=== PATIENT | female | born 1950 | race Caucasian/White ===

== ENCOUNTER 2020-05-16 08:33 | Day surgery (SDC) | payer MEDICARE, OTHER ==
[~2020-05-16] VITALS: Ht 162.6 cm; Wt 73.6 kg
[~2020-05-16 08:33] MED LIST: CRUTCH USE; HYDACE5 PO
--- NOTE | 2020-05-16 09:17 | NUR ---
Ambulatory in Day Surgery History, Chart, Medications and Allergies reviewed before start of procedure. Lungs clear T/O to Auscultation. Patient confirms NPO status and agrees with scheduled surgery. Patient States Post-Procedure ride home has been arranged.
--- NOTE | 2020-05-16 11:37 | NUR ---
05/16/20 1137 Lydia Mcpherson History, Chart, Medications and Allergies reviewed before start of procedure. Patient confirms NPO status and agrees with scheduled surgery. PATIENT DETERMINED TO BE ASA APPROPRIATE FOR PROPOFOL SEDATION PRIOR TO START OF PROCEDURE BY DR. ALDANA. 3-LEAD EKG REVIEWED WITH PHYSICIAN PRIOR TO START OF PROCEDURE. MONITOR INTACT WITH CONTINUOUS PULSE OXIMETRY AND INTERMITTENT BP.
--- NOTE | 2020-05-16 12:15 | NUR ---
PT AWAKE AND ORIENTED, TOLERATING PO FLUIDS W/O DIFFICULTY.
--- NOTE | 2020-05-16 12:37 | NUR ---
Patient up to Ambulate independently. Gait steady. Discharge instructions reviewed with patient. Patient verbalizes understanding. Copy given to patient to take home. Patient States Post-Procedure ride home has been arranged. Discharged via wheelchair to private car for ride home. ALL BELONINGS RETURNED TO PATIENT.
== END 2020-05-16 22:53 | disposition home or self-care (01) ==
LOC: ORSCMMR 08:33 → ORD 09:30 → ORSCMMR 22:53
PROVIDERS: Internal Medicine Gastroenterology
PROC: 0DJD8ZZ Inspection of Lower Intestinal Tract, Via Natural or Artificial Opening Endoscopic (ICD-10-PCS; principal; 2020-05-16 09:30)
DX: R19.4 Change in bowel habit (principal); K57.30 Diverticulosis of large intestine without perforation or abscess without bleeding; Z79.899 Other long term (current) drug therapy
CPT/HCPCS: J2704; J7120

== ENCOUNTER → 2021-01-09 | Outpatient (CLI) | payer MEDICARE, OTHER | END | disposition home or self-care (01) | LOC: LAB SHORT 08:06 → PLD 08:06 | DX: D22.71 Melanocytic nevi of right lower limb, including hip (principal) | CPT/HCPCS: 88305 ==

== ENCOUNTER 2023-07-23 12:49 | Day surgery (SDC) | payer MEDICARE, OTHER ==
[~2023-07-23] VITALS: Ht 162.6 cm; Wt 74.6 kg
[~2023-07-23 12:49] MED LIST changes: +AMLO5; +HYDROCHLOROTH12.5 MG; +LISI20
[2023-07-23 14:41] VITALS: BP 135/83
== END 2023-07-23 14:45 | disposition home or self-care (01) ==
LOC: ORSCSDS 12:49
PROVIDERS: Ophthalmology
PROC: 08RK3JZ Replacement of Left Lens with Synthetic Substitute, Percutaneous Approach (ICD-10-PCS; principal; 2023-07-23 14:00)
DX: H25.12 Age-related nuclear cataract, left eye (principal); I10 Essential (primary) hypertension; Z96.1 Presence of intraocular lens; Z79.899 Other long term (current) drug therapy
CPT/HCPCS: J2250; J3010; J3301; J7040; V2632

== ENCOUNTER → 2024-08-20 | Outpatient (CLI) | payer OTHER | LOC: LAB SHORT 07:31 → LAB 07:31 | DX: L57.0 Actinic keratosis (principal) | CPT/HCPCS: 88305 ==